=== PATIENT | male | born 1995 | race Two or more races ===

== ENCOUNTER 2023-02-17 14:46 | Emergency (ER) | payer MEDICAID, OTHER ==
[~2023-02-17] VITALS: Ht 162.6 cm; Wt 63.5 kg
[2023-02-17] MEDS ORDERED: CLON-418 PO (15:30)
[2023-02-17] MEDS ORDERED: LISI-782 PO (15:30)
[2023-02-17] MEDS ORDERED: CARV3.12 PO (15:30)
[2023-02-17] MEDS ORDERED: FOLI1TAB94 PO (15:30)
[2023-02-17] MEDS ORDERED: TRAZ-257 PO (15:30)
[2023-02-17] MEDS ORDERED: GABA800T PO (15:30)
[2023-02-17 16:00] LABS: *BILIRUBIN,URIN NEGATIVE (NEGATIVE); *BLOOD, URINE NEGATIVE (NEGATIVE); *CLARITY,URINE CLEAR (CLEAR); *COLOR,URINE YELLOW (YELLOW); *KETONES,URINE NEGATIVE (NEGATIVE); *UROBILINOGEN,URINE 0.2 E.U./dl (NORMAL); LEUKOCYTE ESTERASE ,URINE NEGATIVE (NEGATIVE); NITRITE, URINE NEGATIVE (NEGATIVE); UGLUCOSE NEGATIVE (NEGATIVE)
[2023-02-17 16:07] LABS: HEMATOCRIT 37.4 % (36.7-47.1); MEAN CORPUSCULAR HEMOGLOBIN 28.1 uug (23.8-33.4); PLATELET COUNT (AUTO) 219 K/uL (152-348)
[2023-02-17 16:11] LABS: *AMPHETAMINE, URINE NEGATIVE (NEGATIVE); *CANNABINOID, URINE NEGATIVE (NEGATIVE); *COCCAINE, URINE NEGATIVE (NEGATIVE); *PHENCYCLIDINE SCREEN,URINE NEGATIVE (NEGATIVE)
[2023-02-17 16:18] LABS: BILIRUBIN,TOTAL 0.3 mg/dL (0.2-1.0); CREATININE 0.9 mg/dL (0.6-1.3); MAGNESIUM 1.7 mg/dL (1.8-2.4); PHOSPHOROUS 2.9 mg/dL (2.5-4.9); TOTAL PROTEIN, SERUM 7.5 g/dL (6.4-8.2)
[2023-02-17 16:21] LABS: THYROID STIMULATING HORMONE 1.611 mIU/mL (0.358-3.740)
[2023-02-17] MEDS ORDERED: MAGNESIUM SULFATE/D5W 100 ML IV SCH (17:00)
[2023-02-17] MEDS ORDERED: MAGNESIUM SULFATE/D5W 100 ML ONE (18:18)
--- NOTE | 2023-02-17 19:17 | NUR ---
Receieved report from Rosario DEL CASTILLO.
--- NOTE | 2023-02-17 20:05 | NUR ---
Patient discharged to home in stable condition. Written and verbal after care instructions given. Patient verbalizes understanding of instructions. Stressed follow up or return to ER for worsening s/s. Patient walked out with steady gait.
[2023-02-17 20:13] VITALS: BP 122/65; TEMP 97.6; O2SAT 98
== END 2023-02-17 20:14 | disposition home or self-care (01) ==
LOC: ER 14:46
DX: R00.2 Palpitations (principal); E83.42 Hypomagnesemia; Z91.048 Other nonmedicinal substance allergy status; Z79.899 Other long term (current) drug therapy
CPT/HCPCS: 99285; 96365; 71045; 80053; 83880; 84439; 83735; 84100; 84443; 85025; 84484; 36415; 93005; 80307; 81003; J3475; A4663